=== PATIENT | female | born 1960 | race Caucasian/White ===

== ENCOUNTER → 2016-12-06 | Outpatient (REF) | payer BC ==
[2016-12-06 14:30] LABS: IMMUNOGLOBULIN M 40.2 MG/DL (40-230)
== END ==
LOC: M LAB REF 13:11
PROVIDERS: ATTEND Internal Medicine Pulmonary Disease
DX: R05 Cough (principal)

== ENCOUNTER → 2017-02-28 | Outpatient (CLI) | payer BC ==
[~2017-02-28] MED LIST: METHACHOLINE KIT (J7674) INH ONE
--- NOTE | 2017-02-28 08:48 | PFTRPT ---
METHACHOLINE CHALLENGE REPORT: ORDERING PROVIDER: Braden Hugo D.O. DATE OF SERVICE: 02/28/17 INTERPRETATION: The study was of excellent technical quality. Under protocol, methacholine was administered. Even after a maximal dose of 25 mg (188.875 CDUs) of methacholine , no provocation dose was ever achieved. IMPRESSION: Negative methacholine challenge study. MTDD
== END ==
LOC: M CARPUL 08:03
PROVIDERS: ATTEND Internal Medicine Pulmonary Disease
DX: R05 Cough (principal)

== ENCOUNTER → 2018-09-20 | Outpatient (CLI) | payer BC | LOC: M WUC 08:40 | DX: S20.212A Contusion of left front wall of thorax, initial encounter (principal); X58.XXXA Exposure to other specified factors, initial encounter; Y92.9 Unspecified place or not applicable | CPT/HCPCS: 71101 ==

== ENCOUNTER → 2019-02-17 | Outpatient (REF) | payer BC | LOC: M LAB REF 10:32 | PROVIDERS: ATTEND Physician Assistant | DX: J02.9 Acute pharyngitis, unspecified (principal) ==

== ENCOUNTER → 2020-04-05 | Outpatient (CLI) | payer BC ==
--- NOTE | 2020-04-06 02:02 | REP ---
Clinical: Nontraumatic right foot pain Technique: AP, lateral, bilateral oblique views right foot . Findings: The osseous structures and joint spaces are intact and normal. There is no evidence for acute fracture or dislocation. Surrounding soft tissues are unremarkable. No subcutaneous emphysema or radiodense foreign body. Impression: Normal age appropriate right foot radiographs . No acute fracture or dislocation. Electronically Signed by Rosendo Romero MD 04/06/2020 01:54 A
== END ==
LOC: M WUC 09:56
PROVIDERS: ATTEND Physician Assistant
DX: M79.671 Pain in right foot (principal)

== ENCOUNTER → 2020-05-30 | Outpatient (CLI) | payer BC ==
[~2020-05-30] MED LIST changes: +FLUO40CA PO; -METHACHOLINE KIT (J7674) INH ONE; +NORC1TAB7 PO; +PANT40TA29 PO; +TOPI50TA9 PO
== END ==
LOC: M LABSMTC 10:12
PROVIDERS: ATTEND Anesthesiology
DX: Z01.818 Encounter for other preprocedural examination (principal); Z11.59 Encounter for screening for other viral diseases; Z20.828 Contact with and (suspected) exposure to other viral communicable diseases
CPT/HCPCS: C9803; U0003

== ENCOUNTER 2020-06-04 08:04 | Day surgery (SDC) | payer BC ==
[~2020-06-04] VITALS: Ht 154.9 cm; Wt 65.3 kg
[~2020-06-04 08:04] MED LIST changes: +LR 1,000 ML IV ONE; -NORC1TAB7 PO
[2020-06-04] MEDS ORDERED: fentaNYL 100 MCG/2 ML INJECTION (J3010) As Ordered ONE (08:36)
[2020-06-04] MEDS ORDERED: LIDOCAINE 2% 100MG/5ML SDV (FOR ANES.) As Ordered ONE (08:36)
[2020-06-04] MEDS ORDERED: MIDAZOLAM INJ 2MG/2ML VIAL (J2250 PER 1MG) As Ordered ONE (08:36)
[2020-06-04] MEDS ORDERED: propofoL 200 MG/20 ML VIAL As Ordered ONE ×2 (08:36→09:44)
[2020-06-04] MEDS ORDERED: BUPIVACAINE HCL 0.25% 30ML VIAL As Ordered ONE (09:10)
[2020-06-04] MEDS ORDERED: BUPIVACAINE HCL 0.5% 30 ML VIAL As Ordered ONE (09:10)
[2020-06-04] MEDS ORDERED: BUPIVACAINE LIPOSOME/PF 1.3% 20ML VIAL (13.3MG/ML)(EXPAREL)(C9290 PER1MG) As Ordered ONE (10:17)
[2020-06-04] MEDS ORDERED: LR 1,000 ML IV SCH (11:45)
[2020-06-04] MEDS ORDERED: ONDANSETRON 4MG/2ML VIAL IV PRN (11:45)
[2020-06-04] MEDS ORDERED: fentaNYL 100 MCG/2 ML INJECTION (J3010) IV PRN (11:45)
[2020-06-04] MEDS ORDERED: ACETAMINOPHEN TAB 650MG DOSE (2X325MG) PO PRN (12:00)
[2020-06-04] MEDS ORDERED: IBUPROFEN 600MG TAB PO PRN (12:00)
[2020-06-04] MEDS ORDERED: NORC1TAB7 PO (13:05)
[2020-06-04 15:00] VITALS: BP 128/63
--- NOTE | 2020-08-24 14:39 | RO ---
DATE OF OPERATION: 06/04/2020 PREOPERATIVE DIAGNOSIS: Grade IV hemorrhoids. POSTOPERATIVE DIAGNOSIS: Grade IV hemorrhoids. PROCEDURE PERFORMED: Hemorrhoidectomy. SURGEON: Karlos Roman MD ANESTHESIA: Spinal. INDICATIONS FOR THE PROCEDURE: The patient is a 59-year-old woman who has a long history of hemorrhoids. These have recently become more uncomfortable with presence of some leakage of small amounts of stool and mucous. She is now for hemorrhoidectomy. OPERATIVE PROCEDURE: The patient was brought to the operating room. A spinal anesthetic was placed and she was then rolled into a prone position and positioned in a prone jackknife position on the operating table. The buttocks were spread slightly with tape. The perineum was prepped and draped in sterile fashion. A Christian anal speculum was used to inspect the anus and rectum. She was found to have moderately large hemorrhoidal clusters in right anterior and right posterior position as well as left lateral position. Initially the right posterior hemorrhoidal bundle which appeared to be the largest was addressed. The area was exposed with the speculum. An apical suture of 3-0 Vicryl was placed above the proximal end of the hemorrhoid. Using the needle-tip cautery the hemorrhoids were incised circumferentially extending out to the level of the dentate line. The hemorrhoids were elevated off the underlying internal sphincter muscle again with hemostasis ensured using the cautery. The tissue was set aside as specimen. Some additional vascular tissue was excised from beneath the edges of the mucosa. Some of the external component was also excised with the overlying anoderm. Once the hemorrhoidal tissues had been excised as thoroughly as possible and hemostasis was ensured the internal portion of the wound was closed with running locking suture of 3-0 Vicryl. This was carried out to the dentate line and the wound from this point further to the anoderm was closed with chromic sutures. The right anterior hemorrhoidal cluster was then addressed in similar fashion and closed similarly with 3-0 Vicryl and 3-0 chromic. The left lateral hemorrhoid was then also excised. All of the hemorrhoidal tissues were sent together as a single specimen. Final inspection showed excellent hemostasis. 20 mL of Exparel was mixed with 10 mL of 0.25% Marcaine. This was then infiltrated widely into the tissues around the anus and along the suture lines. The anus was covered with Adaptic and light pressure dressing of fluffed gauze. This was held in place with tape. The patient was rolled into supine position on the stretcher and transported to the recovery room in stable condition. ARJUN
== END 2020-06-04 15:07 | disposition home or self-care (01) ==
LOC: M SDC 08:04
PROVIDERS: ATTEND Surgery
DX: K64.3 Fourth degree hemorrhoids (principal); K21.9 Gastro-esophageal reflux disease without esophagitis; K44.9 Diaphragmatic hernia without obstruction or gangrene; F32.9 Major depressive disorder, single episode, unspecified; Z79.899 Other long term (current) drug therapy; Z88.5 Allergy status to narcotic agent
CPT/HCPCS: 46255; 88304; C9290; J2250; J3010

== ENCOUNTER 2020-08-09 16:25 | Emergency (ER) | payer BC ==
[~2020-08-09] VITALS: Ht 154.9 cm; Wt 140.0 kg
[~2020-08-09 16:25] MED LIST changes: -LR 1,000 ML IV ONE; +NORC1TAB7 PO
--- NOTE | 2020-08-09 17:23 | REPVR ---
PROCEDURE INFORMATION: Exam: CT Head Without Contrast Exam date and time: 08/09/2020 4:52 PM Age: 59 years old Clinical indication: Syncope and collapse TECHNIQUE: Imaging protocol: Computed tomography of the head without contrast. Radiation optimization: All CT scans at this facility use at least one of these dose optimization techniques: automated exposure control; mA and/or kV adjustment per patient size (includes targeted exams where dose is matched to clinical indication); or iterative reconstruction. COMPARISON: No relevant prior studies available. FINDINGS: Brain: No hemorrhage. Unremarkable white matter for the patient's age. No mass effect. No evolving territorial infarct. Ventricles: No ventriculomegaly. Bones/joints: No acute calvarial fracture seen. Paranasal sinuses: Trace polypoid mucosal thickening in the visualized left maxillary sinus. Mastoid air cells: Visualized mastoid air cells are well aerated. Soft tissues: Unremarkable. IMPRESSION: No acute intracranial abnormality seen. Electronically signed by: Lyudmila Rodriguez On 08/09/2020 17:23:09 PM
--- NOTE | 2020-08-09 17:29 | REPVR ---
PROCEDURE INFORMATION: Exam: CT Cervical Spine Without Contrast Exam date and time: 08/09/2020 4:52 PM Age: 59 years old Clinical indication: Injury or trauma; Injury history: Syncope; Initial encounter; Blunt trauma TECHNIQUE: Imaging protocol: Computed tomography images of the cervical spine without contrast. Radiation optimization: All CT scans at this facility use at least one of these dose optimization techniques: automated exposure control; mA and/or kV adjustment per patient size (includes targeted exams where dose is matched to clinical indication); or iterative reconstruction. COMPARISON: No relevant prior studies available. FINDINGS: Vertebrae: Straightening of the cervical lordosis may be positional or due to muscle spasm. Trace degenerative retrolisthesis of C5 on C6. No acute fracture seen. [id number] disc height loss and spondylosis with uncovertebral arthropathy at C5-C6. Moderate degenerative changes at C1-C2. Discs/Spinal canal/Neural foramina: See "Vertebrae" finding. Soft tissues: Unremarkable. Lungs: Lung apices are normal. IMPRESSION: No cervical spine fracture seen. Electronically signed by: Lyudmila Rodriguez On 08/09/2020 17:28:54 PM
[2020-08-09] MEDS ORDERED: ACETAMINOPHEN TAB 650MG DOSE (2X325MG) PO ONE (17:30)
[2020-08-09 17:54] LABS: BASO % 0.5 % (0.0-1.0); EOS # 0.2 10^3/uL (0.0-0.5); EOS % 2.1 % (0.0-3.0); HEMATOCRIT 32.9 % (36.0-47.0); HEMOGLOBIN 10.5 g/dl (12.0-15.5); LYMPH # 1.5 10^3/uL (1.5-5.0); LYMPH % 16.4 % (24.0-44.0); MEAN CORPUSCULAR HEMOGLOBIN 26.5 pg (27.0-33.0); MEAN CORPUSCULAR HGB CONC 31.9 g/dl (32.0-36.5); MEAN CORPUSCULAR VOLUME 83.1 fl (80.0-96.0); MONO # 0.7 10^3/uL (0.0-0.8); NEUTROPHILS # 6.4 10^3/uL (1.5-8.5); NEUTROPHILS % 72.4 % (36.0-66.0); PLATELET COUNT, AUTOMATED 332 10^3/uL (150-450); RED BLOOD COUNT 3.96 10^6/uL (4.00-5.40); WHITE BLOOD COUNT 8.9 10^3/uL (4.0-10.0)
[2020-08-09 17:57] LABS: INR 0.93; PROTHROMBIN TIME 12.6 SECONDS (12.5-14.3)
[2020-08-09 18:14] LABS: BLOOD UREA NITROGEN 19 MG/DL (7-18); CALCIUM LEVEL 9.3 MG/DL (8.5-10.1); CARBON DIOXIDE LEVEL 25 MEQ/L (21-32); CHLORIDE LEVEL 109 MEQ/L (98-107); CK-MB VALUE MASS < 1.0 NG/ML (<3.6); CPK CREATINE PHOSPHOKINASE 55 U/L (26-192); CREATININE FOR GFR 0.96 MG/DL (0.55-1.30); FREE T4 0.92 NG/DL (0.76-1.46); GLOMERULAR FILTRATION RATE > 60.0 (>51); GLUCOSE, FASTING 115 MG/DL (70-100); MAGNESIUM LEVEL 2.4 MG/DL (1.8-2.4); MB/CK RELATIVE INDEX 1.82 (< OR =4); POTASSIUM SERUM 4.1 MEQ/L (3.5-5.1); SODIUM LEVEL 139 MEQ/L (136-145); TROPONIN I < 0.02 NG/ML (< 0.10)
--- NOTE | 2020-08-09 18:28 | REPVR ---
PROCEDURE INFORMATION: Exam: XR Chest, 2 Views Exam date and time: 08/09/2020 4:52 PM Age: 59 years old Clinical indication: Other: Syncope TECHNIQUE: Imaging protocol: XR of the chest Views: 2 views. COMPARISON: CR RIBS UNLATERAL WITH PA CHEST 09/20/2018 8:49 AM FINDINGS: Lungs: Low lung volumes. No consolidation seen. An area of platelike atelectasis versus scarring in the left lung base. Pleural space: Unremarkable. No pleural effusion. No pneumothorax. Heart/Mediastinum: Unremarkable. No cardiomegaly. Bones/joints: No acute fracture seen. Organs: Cholecystectomy clips in the right upper quadrant. IMPRESSION: No evidence of acute cardiopulmonary disease. Electronically signed by: Lyudmila Rodriguez On 08/09/2020 18:28:46 PM
--- NOTE | 2020-08-09 20:35 | ECGEPIP ---
[facility] - ED Test Date: 2020-08-09 Pat Name: MINA MARKS Department: Room: - Gender: Female School Office Assistant: RENETTA : 1960 Requested By: ROSIE Celis Order Number: [id number] Reading MD: Tracy Palomares Measurements Intervals [place] Rate: 69 P: 33 [place]: 177 QRS: 1 QRSD: 81 T: 35 QT: 423 QTc: 455 Interpretive Statements SINUS RHYTHM MINIMAL VOLTAGE CRITERIA FOR LVH, CONSIDER NORMAL VARIANT SIMILAR 04/14/15 Electronically Signed on 08-09-2020 20:35:10 EDT by Tracy Palomares
[2020-08-09 20:45] VITALS: BP 119/58
== END 2020-08-09 21:02 | disposition home or self-care (01) ==
LOC: M ED 16:25
DX: R55 Syncope and collapse (principal); K21.9 Gastro-esophageal reflux disease without esophagitis; F33.9 Major depressive disorder, recurrent, unspecified; Z79.899 Other long term (current) drug therapy; Z88.5 Allergy status to narcotic agent

== ENCOUNTER → 2020-08-12 | Outpatient (REF) | payer BC ==
[2020-08-12 18:09] LABS: PERCENT SATURATION 20.3 % (13.2-45.0)
== END ==
LOC: M LAB REF 17:00
PROVIDERS: ATTEND Registered Nurse
DX: R55 Syncope and collapse (principal); D64.9 Anemia, unspecified

== ENCOUNTER → 2020-12-23 | Outpatient (CLI) | payer BC ==
--- NOTE | 2020-12-23 11:38 | REP ---
INDICATION: CHEST PAIN, UNSPECIFIED. COMPARISON: Comparison chest x-ray August 09, 2020. TECHNIQUE: Two views.. FINDINGS: There is mild linear fibrosis at the left base. There are linear densities in the right perihilar and right base region consistent with platelike atelectasis. Lung fraser are otherwise clear. Heart is not enlarged. There are mild degenerative changes in the thoracic spine. There are clips in right upper quadrant of the abdomen. Pulmonary vasculature is not increased. IMPRESSION: Right perihilar and right base platelike atelectasis. Linear fibrosis left base. Otherwise no acute disease.. <Electronically signed by Ray Morales > 12/23/20 [id number]
[2020-12-23 11:43] LABS: BASO % 0.5 % (0.0-1.0); EOS # 0.2 10^3/uL (0.0-0.5); EOS % 3.2 % (0.0-3.0); LYMPH # 1.6 10^3/uL (1.5-5.0); LYMPH % 26.8 % (24.0-44.0); MEAN CORPUSCULAR HEMOGLOBIN 28.1 pg (27.0-33.0); MEAN CORPUSCULAR HGB CONC 32.5 g/dl (32.0-36.5); MEAN CORPUSCULAR VOLUME 86.4 fl (80.0-96.0); MONO # 0.5 10^3/uL (0.0-0.8); MONO % 8.7 % (0.0-5.0); NEUTROPHILS # 3.6 10^3/uL (1.5-8.5); PLATELET COUNT, AUTOMATED 358 10^3/uL (150-450); RED BLOOD COUNT 4.63 10^6/uL (4.00-5.40)
[2020-12-23 12:39] LABS: ALBUMIN 3.6 GM/DL (3.2-5.2); ALT/SGPT 27 U/L (12-78); BILIRUBIN,TOTAL 0.5 MG/DL (0.2-1.0); BLOOD UREA NITROGEN 12 MG/DL (7-18); CALCIUM LEVEL 9.7 MG/DL (8.5-10.1); CARBON DIOXIDE LEVEL 24 MEQ/L (21-32); CHLORIDE LEVEL 108 MEQ/L (98-107); CK-MB VALUE MASS < 1.0 NG/ML (<3.6); CPK CREATINE PHOSPHOKINASE 30 U/L (26-192); CREATININE FOR GFR 0.92 MG/DL (0.55-1.30); GLOMERULAR FILTRATION RATE > 60.0 (>51); GLUCOSE, FASTING 86 MG/DL (70-100); MB/CK RELATIVE INDEX 3.33 (< OR =4); MYOGLOBIN 33 NG/ML (13-71); POTASSIUM SERUM 4.6 MEQ/L (3.5-5.1); SODIUM LEVEL 141 MEQ/L (136-145); TOTAL PROTEIN 7.6 GM/DL (6.4-8.2); TROPONIN I < 0.02 NG/ML (< 0.10)
== END ==
LOC: M LAB 11:06
PROVIDERS: ATTEND Physician Assistant
DX: R07.9 Chest pain, unspecified (principal); J98.11 Atelectasis

== ENCOUNTER → 2021-01-26 | Outpatient (CLI) | payer BC ==
[~2021-01-26] MED LIST changes: +ISOVUE-370 76% 100ML VIAL As Ordered ONE
--- NOTE | 2021-01-26 16:49 | REP ---
INDICATION: CHEST PAIN, DYSPNEA. COMPARISON: 06/21/2017. TECHNIQUE: CT angiogram chest performed following the intravenous administration of 100 cc of Isovue 370. Sagittal and coronal reconstruction images are performed. FINDINGS: Lungs: There are bibasilar fibro atelectatic changes. No infiltrate or suspicious nodule is seen. Mediastinum: No adenopathy. Pulmonary arteries: No evidence of pulmonary embolism. Ayala: No adenopathy. Axilla: No adenopathy. Pleura: No effusion. Heart: Slightly enlarged. Thoracic aorta: No aneurysm or dissection. Upper abdominal structures: There is a small hiatal hernia. There has been a prior cholecystectomy. Visualized osseous structures: Unremarkable. IMPRESSION: No CT evidence of pulmonary embolism. No infiltrate seen. Bibasilar fibro atelectatic changes. <Electronically signed by Bo Alvarado > 01/26/21 [id number]
== END ==
LOC: M RAD 15:49
PROVIDERS: ATTEND Physician Assistant
DX: R07.9 Chest pain, unspecified (principal); R06.00 Dyspnea, unspecified
CPT/HCPCS: 71275; Q9967

== ENCOUNTER → 2021-05-02 | Outpatient (CLI) | payer BC ==
[~2021-05-02] MED LIST changes: -ISOVUE-370 76% 100ML VIAL As Ordered ONE
--- NOTE | 2021-05-03 09:06 | REP ---
INDICATION: OTHER NONSPECIFIC ADNORMAL FINDING OF LUNG FIELD COMPARISON: 01/26/2021 TECHNIQUE: Axial noncontrast images from the thoracic inlet to the upper abdomen with coronal and sagittal reformations. This CT examination was performed using the following dose reduction techniques: Automated exposure control, adjustment of mA and/or kv according to the patient's size, and use of iterative reconstruction technique. FINDINGS: Bilateral lung fraser are well aerated and essentially clear. There is a small focus of chronic fibroatelectatic change at the lingula. No acute consolidation, obvious nodule or mass. No effusion. No pneumothorax. Tracheobronchial tree is patent. No obvious adenopathy. The mediastinum demonstrates relatively normal thoracic aorta, pulmonary vasculature, and heart/pericardium. Small hiatal hernia noted. Musculoskeletal structures are intact. Limited upper abdomen demonstrates normal bilateral adrenal glands and prior cholecystectomy. IMPRESSION: Small focus of chronic fibroatelectatic change at the lingula. No acute mediastinal or pleuroparenchymal process. <Electronically signed by Rosendo Romero > 05/03/21 0902
== END ==
LOC: M RAD 09:56
PROVIDERS: ATTEND Physician Assistant
DX: R91.8 Other nonspecific abnormal finding of lung field (principal); K44.9 Diaphragmatic hernia without obstruction or gangrene; Z90.49 Acquired absence of other specified parts of digestive tract

== ENCOUNTER → 2021-07-21 | Outpatient (CLI) | payer BC ==
--- NOTE | 2021-07-21 10:01 | REPMRS ---
Patient History The patient states she has not had a clinical breast exam in over a year. Family history of breast cancer at age 80 in mother, unknown cancer at age 47 in brother, unknown cancer at age 59 in father. Took hormonal contraceptives for 5 years. Took estrogen for 15 years. Patient states no breast complaints today. Patient has signed MRS History Sheet. Digital Woman Screen Mammo: July 21, 2021 - Exam #: [id number] Bilateral CC and MLO view(s) were taken. Technologist: Natalie Matuteologist Prior study comparison: October 01, 2019, bilateral digital mammo screening bilat, performed at [facility]. September 18, 2017, bilateral digital mammo screening bilat, performed at [facility]. September 16, 2015, bilateral digital mammo screening bilat, performed at [facility]. FINDINGS: There are scattered fibroglandular densities. The Volpara volumetric breast density category is:B. There has been no change in the appearance of the mammogram from the prior studies. There is a mild amount of scattered fibroglandular density which is fairly symmetric. There is no interval development of dominant mass, architectural distortion, or grouped microcalcification suggestive of malignancy. 3-D tomosynthesis shows no additional findings. Assessment: BI-RADS/ACR category 1 mammogram. Negative Mammogram. Recommendation Routine screening mammogram of both breasts in 1 year (for women over age 40). This patient's [facility] Lifetime Breast Cancer Risk is estimated at 11.1 %. This mammogram was interpreted with the aid of an FDA-approved computer-aided dectection system. Electronically Signed By: Ray Morales MD 07/21/21 1000
== END ==
LOC: M WHC 09:25
PROVIDERS: ATTEND Physician Assistant Medical
DX: Z12.31 Encounter for screening mammogram for malignant neoplasm of breast (principal); Z80.3 Family history of malignant neoplasm of breast

== ENCOUNTER → 2021-10-28 | Outpatient (CLI) | payer BC ==
--- NOTE | 2021-10-28 09:01 | REP ---
INDICATION: ABN FINDING OF LUNG COMPARISON: 05/02/2021 TECHNIQUE: Axial noncontrast images from the thoracic inlet to the upper abdomen with coronal and sagittal reformations. This CT examination was performed using the following dose reduction techniques: Automated exposure control, adjustment of mA and/or kv according to the patient's size, and use of iterative reconstruction technique. FINDINGS: Bilateral lung fraser are relatively well aerated and symmetric. Chronic focus of chronic fibroatelectatic change at the lingula again noted. Extremely subtle foci of ground-glass opacity/early airspace disease suggested in the left lower lobe. No further acute consolidation, suspicious nodule or mass. No effusion. No pneumothorax. Tracheobronchial tree is patent. No obvious adenopathy. Thoracic aorta, pulmonary vasculature, and heart/pericardium are relatively normal/stable. Surrounding musculoskeletal structures are intact and without acute osseous abnormality. Limited upper abdomen demonstrates normal bilateral adrenal glands and evidence for prior cholecystectomy. IMPRESSION: Very minimal possible early airspace disease versus subtle dependent change at the left base. No further acute mediastinal or pleuroparenchymal process appreciated. <Electronically signed by Rosendo Romero > 10/28/21 [id number]
== END ==
LOC: M RAD 08:36
PROVIDERS: ATTEND Physician Assistant
DX: R91.8 Other nonspecific abnormal finding of lung field (principal)

== ENCOUNTER → 2021-11-08 | Outpatient (CLI) | payer BC ==
[~2021-11-08] MED LIST changes: +METHACHOLINE KIT (J7674) INH ONE
--- NOTE | 2021-11-08 09:50 | PFTRPT ---
Height: 61.00 Inches Weight: 142.00 Lbs BSA: 1.63 Diagnosis: R05.9 DATE: 11/08/2021 ORDERED BY: ANA Denise QUALITY: Study of excellent technical quality. PROCEDURE: Under protocol, methacholine was administered. Even after a maximal dose of 25 mg or 188.875 CDUs no provocation was ever achieved. IMPRESSION: Negative methacholine challenge study. MTDD
== END ==
LOC: M CARPUL 08:58
PROVIDERS: ATTEND Physician Assistant
DX: R05.9 Cough, unspecified (principal)
CPT/HCPCS: 94070; J7674

== ENCOUNTER → 2022-04-24 | Outpatient (CLI) | payer BC ==
[~2022-04-24] MED LIST changes: -METHACHOLINE KIT (J7674) INH ONE
== END ==
LOC: M RAD 11:25
PROVIDERS: ATTEND Physician Assistant
DX: R91.8 Other nonspecific abnormal finding of lung field (principal)

== ENCOUNTER → 2022-06-22 | Outpatient (CLI) | payer BC ==
[2022-06-22 20:32] LABS: FOLLICLE STIMULATING HORMONE 65.6 mIU/mL; LUTEINIZING HORMONE 47.1 mIU/mL
== END ==
LOC: M WUC 10:42
PROVIDERS: ATTEND Registered Nurse
DX: N95.1 Menopausal and female climacteric states (principal); R93.7 Abnormal findings on diagnostic imaging of other parts of musculoskeletal system; M50.321 Other cervical disc degeneration at C4-C5 level; M50.322 Other cervical disc degeneration at C5-C6 level; M43.12 Spondylolisthesis, cervical region

== ENCOUNTER → 2022-08-28 | Outpatient (CLI) | payer BC | LOC: M WHC 08:14 | PROVIDERS: ATTEND Registered Nurse | DX: Z12.31 Encounter for screening mammogram for malignant neoplasm of breast (principal); M81.0 Age-related osteoporosis without current pathological fracture; M85.89 Other specified disorders of bone density and structure, multiple sites ==

== ENCOUNTER → 2022-11-06 | Outpatient (CLI) | payer BC | LOC: M RAD 07:35 | PROVIDERS: ATTEND Registered Nurse | DX: N28.1 Cyst of kidney, acquired (principal); I10 Essential (primary) hypertension ==

== ENCOUNTER → 2023-02-19 | Outpatient (CLI) | payer BC ==
[~2023-02-19] MED LIST changes: +TOPI-254 PO; -TOPI50TA9 PO
== END ==
LOC: M WUC 11:49
PROVIDERS: ATTEND Physician Assistant Medical
DX: M79.672 Pain in left foot (principal)

== ENCOUNTER 2023-11-10 02:16 | Inpatient (IN) | payer BC ==
[~2023-11-10] VITALS: Ht 152.4 cm; Wt 68.9 kg
[~2023-11-10 02:16] MED LIST changes: +TOPI-21 PO; -TOPI-254 PO
[2023-11-10] MEDS ORDERED: NS 1,000 ML IV ONE (02:40)
[2023-11-10 02:55] LABS: BASO % 0.3 % (0.0-1.0); EOS # 0.1 10^3/uL (0.0-0.5); EOS % 0.4 % (0.0-3.0); HEMOGLOBIN 14.5 g/dl (12.0-15.5); LYMPH # 1.5 10^3/uL (1.5-5.0); LYMPH % 13.3 % (24.0-44.0); MEAN CORPUSCULAR HEMOGLOBIN 31.4 pg (27.0-33.0); MEAN CORPUSCULAR HGB CONC 35.4 g/dl (32.0-36.5); MEAN CORPUSCULAR VOLUME 88.7 fl (80.0-96.0); MONO # 0.6 10^3/uL (0.0-0.8); MONO % 5.3 % (2.0-8.0); NEUTROPHILS # 9.3 10^3/uL (1.5-8.5); NEUTROPHILS % 80.3 % (36.0-66.0); PLATELET COUNT, AUTOMATED 347 10^3/uL (150-450); RED BLOOD COUNT 4.62 10^6/uL (4.00-5.40); WHITE BLOOD COUNT 11.6 10^3/uL (4.0-10.0)
[2023-11-10 03:14] LABS: LIPASE 50 U/L (12-53)
[2023-11-10 03:15] LABS: ETHYL ALCOHOL (ETHANOL) 0.094 % (0.000-0.010)
[2023-11-10] MEDS ORDERED: NS IV ONE (03:15)
[2023-11-10 03:16] LABS: ALBUMIN 3.7 G/DL (3.2-5.2); ALKALINE PHOSPHATASE 71 U/L (46-116); ALT/SGPT 42 U/L (7.0-40); AST/SGOT 50 U/L (<34); BILIRUBIN,DIRECT 0.1 MG/DL (<0.4); BILIRUBIN,TOTAL 0.4 MG/DL (0.3-1.2); BLOOD UREA NITROGEN 13 MG/DL (9-23); CALCIUM LEVEL 9.6 MG/DL (8.3-10.6); CARBON DIOXIDE LEVEL 20 MMOL/L (20-31); CHLORIDE LEVEL 91 MMOL/L (98-107); CK-MB VALUE MASS < 1.0 NG/ML (<3.6); CREATININE FOR GFR 0.91 MG/DL (0.55-1.30); GLOMERULAR FILTRATION RATE > 60.0 (>45); GLUCOSE, FASTING 149 MG/DL (74-106); SODIUM LEVEL 125 MMOL/L (136-145); TOTAL PROTEIN 6.9 G/DL (5.7-8.2)
[2023-11-10 03:20] LABS: CPK CREATINE PHOSPHOKINASE 46 U/L (34-145); MB/CK RELATIVE INDEX 2.17 (< OR =4)
[2023-11-10] MEDS ORDERED: MORPHINE 4 MG/ML 1ML VIAL IV PRN (05:00)
[2023-11-10] MEDS ORDERED: ONDANSETRON 4MG 2ML VIAL IV ONE (05:00)
[2023-11-10] MEDS ORDERED: ISOVUE-370 76% 100ML VIAL As Ordered ONE (05:13)
[2023-11-10] MEDS ORDERED: PIPERACILLIN/TAZOBACTAM SOD 4.5 GM in D5W MINI-BAG PLUS 50 ML IV ONE (06:00)
[2023-11-10] MEDS ORDERED: LORazepam 2 MG TAB PO PRN (07:50)
[2023-11-10] MEDS ORDERED: ONDANSETRON 4MG 2ML VIAL IV PRN (07:50)
[2023-11-10 08:26] LABS: INR 1.05; PROTHROMBIN TIME 13.4 SECONDS (12.5-14.5)
[2023-11-10 08:27] LABS: PARTIAL THROMBOPLASTIN TIME 24.5 SECONDS (24.8-34.2)
[2023-11-10] MEDS: LR 1,000 ML IV SCH ×2 (08:44→22:32)
[2023-11-10] MEDS ORDERED: MED REC IN PROGRESS XX SCH (08:45)
[2023-11-10] MEDS ORDERED: LISI40TA4 PO (08:52)
[2023-11-10] MEDS ORDERED: HYDR-3490 PO (08:52)
[2023-11-10] MEDS ORDERED: ESTR3TA PO (08:52)
[2023-11-10] MEDS ORDERED: HOME MED LIST COMPLETE! XX SCH (08:55)
[2023-11-10] MEDS ORDERED: MULTIVITAMIN -ADULT INJECTION 10 ML, THIAMINE INJection 100 MG, FOLIC ACID 1 MG in NS 1... IV ONE (09:00)
[2023-11-10 09:16] LABS: PROCALCITONIN <0.04 ng/ml
[2023-11-10] MEDS: PIPERACILLIN/TAZOBACTAM SOD 3.375 GM in D5W MINI-BAG PLUS 50 ML IV SCH ×2 (12:26→19:02)
[2023-11-10 13:37] VITALS: BP 130/60; TEMP 96.8; O2SAT 95
[2023-11-10] MEDS ORDERED: GLUCOSE 4GM CHEW TABLET PO PRN (14:15)
[2023-11-10] MEDS ORDERED: GLUCAGON INJ 1MG VIAL SC PRN (14:15)
[2023-11-10] MEDS ORDERED: DEXTROSE 50% 50ML SYRINGE IV PRN (14:15)
[2023-11-10] MEDS: HEPARIN SOD (PORCINE) 5000UNITS/ML 1ML VIAL/SYRINGE SQ SCH ×2 (14:53→22:32)
[2023-11-10 15:54] VITALS: BP 127/71; TEMP 97.6; O2SAT 97
[2023-11-10 17:00] VITALS: BP_SYST 130; BP_SYST 142; BP_DIAS 66; BP_DIAS 67; BP_DIAS 78
[2023-11-10 20:50] VITALS: BP 146/70; TEMP 98; O2SAT 96
[2023-11-11] MEDS: LR 1,000 ML IV SCH ×3 (00:28→15:50)
[2023-11-11] MEDS: PIPERACILLIN/TAZOBACTAM SOD 3.375 GM in D5W MINI-BAG PLUS 50 ML IV SCH ×5 (00:28→23:42)
[2023-11-11] MEDS: KETOROLAC 30 MG/ML 1ML VIAL IV PRN ×2 (00:45→22:34)
[2023-11-11 00:55] VITALS: BP 158/74; TEMP 97.1; O2SAT 94
[2023-11-11 01:00] VITALS: BP_SYST 152; BP_SYST 157; BP_SYST 158; BP_DIAS 83; BP_DIAS 84; BP_DIAS 87
[2023-11-11 04:00] VITALS: BP 135/65; TEMP 97; O2SAT 94
[2023-11-11 06:35] LABS: BASO % 0.3 % (0.0-1.0); EOS # 0.2 10^3/uL (0.0-0.5); EOS % 2.9 % (0.0-3.0); HEMATOCRIT 33.9 % (36.0-47.0); LYMPH # 1.5 10^3/uL (1.5-5.0); LYMPH % 23.5 % (24.0-44.0); MEAN CORPUSCULAR HEMOGLOBIN 31.3 pg (27.0-33.0); MEAN CORPUSCULAR HGB CONC 34.2 g/dl (32.0-36.5); MEAN CORPUSCULAR VOLUME 91.4 fl (80.0-96.0); MONO # 0.5 10^3/uL (0.0-0.8); MONO % 8.1 % (2.0-8.0); NEUTROPHILS # 4.1 10^3/uL (1.5-8.5); NEUTROPHILS % 64.9 % (36.0-66.0); PLATELET COUNT, AUTOMATED 267 10^3/uL (150-450); RED BLOOD COUNT 3.71 10^6/uL (4.00-5.40); WHITE BLOOD COUNT 6.3 10^3/uL (4.0-10.0)
[2023-11-11 06:38] LABS: HEMOGLOBIN 11.6 g/dl (12.0-15.5)
[2023-11-11] MEDS: HEPARIN SOD (PORCINE) 5000UNITS/ML 1ML VIAL/SYRINGE SQ SCH ×3 (06:38→21:33)
[2023-11-11 06:44] LABS: MAGNESIUM LEVEL 2.2 MG/DL (1.8-2.4); PHOSPHORUS LEVEL 2.5 MG/DL (2.4-5.1)
[2023-11-11 07:59] LABS: BLOOD UREA NITROGEN 8 MG/DL (9-23); CALCIUM LEVEL 8.5 MG/DL (8.3-10.6); CARBON DIOXIDE LEVEL 27 MMOL/L (20-31); CHLORIDE LEVEL 105 MMOL/L (98-107); GLOMERULAR FILTRATION RATE > 60.0 (>45); GLUCOSE, FASTING 82 MG/DL (74-106); POTASSIUM SERUM 3.7 MMOL/L (3.5-5.1); SODIUM LEVEL 140 MMOL/L (136-145)
[2023-11-11 08:00] VITALS: BP 146/66; TEMP 97.2; O2SAT 94
[2023-11-11 21:00] VITALS: BP 168/96; TEMP 96.3; O2SAT 94
[2023-11-11] MEDS: FLUoxetine 20MG CAP PO SCH (21:34)
[2023-11-11 22:45] VITALS: BP 156/74
[2023-11-12 04:00] VITALS: TEMP 96.7; O2SAT 94
[2023-11-12 05:33] LABS: BASO % 0.5 % (0.0-1.0); EOS # 0.4 10^3/uL (0.0-0.5); HEMATOCRIT 33.1 % (36.0-47.0); HEMOGLOBIN 11.2 g/dl (12.0-15.5); LYMPH # 1.7 10^3/uL (1.5-5.0); LYMPH % 26.2 % (24.0-44.0); MEAN CORPUSCULAR HEMOGLOBIN 31.1 pg (27.0-33.0); MEAN CORPUSCULAR HGB CONC 33.8 g/dl (32.0-36.5); MEAN CORPUSCULAR VOLUME 91.9 fl (80.0-96.0); MONO # 0.6 10^3/uL (0.0-0.8); MONO % 8.7 % (2.0-8.0); NEUTROPHILS # 3.8 10^3/uL (1.5-8.5); NEUTROPHILS % 58.3 % (36.0-66.0); PLATELET COUNT, AUTOMATED 270 10^3/uL (150-450); WHITE BLOOD COUNT 6.5 10^3/uL (4.0-10.0)
[2023-11-12 05:59] LABS: BLOOD UREA NITROGEN 6 MG/DL (9-23); CALCIUM LEVEL 8.8 MG/DL (8.3-10.6); CARBON DIOXIDE LEVEL 28 MMOL/L (20-31); CHLORIDE LEVEL 104 MMOL/L (98-107); CREATININE FOR GFR 0.74 MG/DL (0.55-1.30); GLOMERULAR FILTRATION RATE > 60.0 (>45); GLUCOSE, FASTING 96 MG/DL (74-106); MAGNESIUM LEVEL 2.2 MG/DL (1.8-2.4); POTASSIUM SERUM 3.5 MMOL/L (3.5-5.1); SODIUM LEVEL 138 MMOL/L (136-145)
[2023-11-12] MEDS: PIPERACILLIN/TAZOBACTAM SOD 3.375 GM in D5W MINI-BAG PLUS 50 ML IV SCH ×3 (06:08→18:24)
[2023-11-12] MEDS: HEPARIN SOD (PORCINE) 5000UNITS/ML 1ML VIAL/SYRINGE SQ SCH ×3 (06:09→21:11)
[2023-11-12 07:34] VITALS: BP 160/77; TEMP 96.2; O2SAT 95
[2023-11-12] MEDS: PANTOPRAZOLE 40MG TAB (PROTONIX) PO SCH (07:52)
[2023-11-12] MEDS: FLUoxetine 20MG CAP PO SCH ×2 (07:52→21:11)
[2023-11-12 16:00] VITALS: BP 162/82; TEMP 96.7; O2SAT 96
[2023-11-12 21:04] VITALS: BP 180/90; TEMP 97.4; O2SAT 96
[2023-11-12] MEDS ORDERED: ACETAMINOPHEN TAB 650MG DOSE (2X325MG) PO ONE (22:00)
[2023-11-12 23:41] VITALS: BP 172/96
[2023-11-13] MEDS: PIPERACILLIN/TAZOBACTAM SOD 3.375 GM in D5W MINI-BAG PLUS 50 ML IV SCH ×2 (00:13→06:48)
[2023-11-13] MEDS ORDERED: **hydrALAZINE HCL** 25 MG TAB PO ONE ×2 (01:00→02:00)
[2023-11-13 01:40] VITALS: BP 162/80
[2023-11-13 02:22] VITALS: BP 162/80
[2023-11-13 04:14] VITALS: BP 144/68; TEMP 96.7; O2SAT 95
[2023-11-13 06:16] LABS: BASO % 0.3 % (0.0-1.0); EOS # 0.4 10^3/uL (0.0-0.5); EOS % 5.1 % (0.0-3.0); HEMATOCRIT 36.2 % (36.0-47.0); HEMOGLOBIN 12.3 g/dl (12.0-15.5); MEAN CORPUSCULAR HEMOGLOBIN 31.1 pg (27.0-33.0); MEAN CORPUSCULAR VOLUME 91.4 fl (80.0-96.0); MONO # 0.6 10^3/uL (0.0-0.8); MONO % 8.1 % (2.0-8.0); NEUTROPHILS # 4.6 10^3/uL (1.5-8.5); NEUTROPHILS % 60.2 % (36.0-66.0); PLATELET COUNT, AUTOMATED 307 10^3/uL (150-450); RED BLOOD COUNT 3.96 10^6/uL (4.00-5.40); WHITE BLOOD COUNT 7.7 10^3/uL (4.0-10.0)
[2023-11-13] MEDS: HEPARIN SOD (PORCINE) 5000UNITS/ML 1ML VIAL/SYRINGE SQ SCH (06:49)
[2023-11-13 06:52] LABS: BLOOD UREA NITROGEN 7 MG/DL (9-23); CALCIUM LEVEL 9.4 MG/DL (8.3-10.6); CARBON DIOXIDE LEVEL 30 MMOL/L (20-31); CHLORIDE LEVEL 101 MMOL/L (98-107); CREATININE FOR GFR 0.74 MG/DL (0.55-1.30); GLOMERULAR FILTRATION RATE > 60.0 (>45); GLUCOSE, FASTING 92 MG/DL (74-106); POTASSIUM SERUM 3.6 MMOL/L (3.5-5.1); SODIUM LEVEL 137 MMOL/L (136-145)
[2023-11-13 08:22] VITALS: BP 148/77; TEMP 97; O2SAT 95
[2023-11-13] MEDS: PANTOPRAZOLE 40MG TAB (PROTONIX) PO SCH (08:36)
[2023-11-13] MEDS: FLUoxetine 20MG CAP PO SCH (08:36)
== END 2023-11-13 09:43 | disposition home or self-care (01) | DRG 247 ==
LOC: M ED 02:16 → M ED INP 07:49 → ENRESERV 12:19 → M PCU 13:56
PROVIDERS: ADMIT Internal Medicine; ATTEND Family Medicine
DX: K56.50 Intestinal adhesions [bands], unspecified as to partial versus complete obstruction (principal); E87.20 Acidosis, unspecified; I10 Essential (primary) hypertension; K56.7 Ileus, unspecified; K21.9 Gastro-esophageal reflux disease without esophagitis; F32.A Depression, unspecified; R55 Syncope and collapse; E78.5 Hyperlipidemia, unspecified; K52.9 Noninfective gastroenteritis and colitis, unspecified; R74.01 Elevation of levels of liver transaminase levels; Z79.899 Other long term (current) drug therapy; Z88.5 Allergy status to narcotic agent; Z90.49 Acquired absence of other specified parts of digestive tract; Z90.710 Acquired absence of both cervix and uterus

== ENCOUNTER → 2024-04-02 | Outpatient (CLI) | payer BC ==
[~2024-04-02] MED LIST changes: +ESTR3TA PO; +HYDR-3490 PO; +LISI40TA4 PO
[2024-04-02 12:49] LABS: TOTAL 25(OH) VITAMIN D 33.7 NG/ML (20.0-100.0)
== END ==
LOC: M WUC 08:29
PROVIDERS: ATTEND Physician Assistant
DX: K56.50 Intestinal adhesions [bands], unspecified as to partial versus complete obstruction (principal); K21.9 Gastro-esophageal reflux disease without esophagitis; Z86.010 Personal history of colon polyps

== ENCOUNTER → 2024-05-27 | Outpatient (REF) | payer BC ==
[2024-05-27 16:27] LABS: CK-MB VALUE MASS < 1.0 NG/ML (<3.6)
[2024-05-27 16:30] LABS: CPK CREATINE PHOSPHOKINASE 39 U/L (34-145); MB/CK RELATIVE INDEX 2.56 (< OR =4)
== END ==
LOC: M LAB REF 16:06
PROVIDERS: ATTEND Physician Assistant Medical
DX: R07.89 Other chest pain (principal)

== ENCOUNTER → 2024-09-29 | Outpatient (CLI) | payer BC | LOC: M RAD 14:09 | PROVIDERS: ATTEND Physician Assistant | DX: R05.9 Cough, unspecified (principal) ==

== ENCOUNTER → 2024-12-11 | Outpatient (CLI) | payer BC | LOC: M WUC 08:13 | PROVIDERS: ATTEND Nurse Practitioner Family | DX: J20.9 Acute bronchitis, unspecified (principal) ==

== ENCOUNTER → 2024-12-15 | Outpatient (CLI) | payer BC ==
[2024-12-15 11:11] LABS: BASO % 0.3 % (0.0-1.0); EOS % 0.1 % (0.0-3.0); HEMATOCRIT 38.1 % (36.0-47.0); HEMOGLOBIN 12.9 g/dl (12.0-15.5); LYMPH # 2.4 10^3/uL (1.5-5.0); LYMPH % 25.3 % (24.0-44.0); MEAN CORPUSCULAR HEMOGLOBIN 30.4 pg (27.0-33.0); MEAN CORPUSCULAR HGB CONC 33.9 g/dl (32.0-36.5); MEAN CORPUSCULAR VOLUME 89.9 fl (80.0-96.0); MONO # 0.8 10^3/uL (0.0-0.8); MONO % 8.6 % (2.0-8.0); NEUTROPHILS # 6.1 10^3/uL (1.5-8.5); PLATELET COUNT, AUTOMATED 394 10^3/uL (150-450); RED BLOOD COUNT 4.24 10^6/uL (4.00-5.40); WHITE BLOOD COUNT 9.6 10^3/uL (4.0-10.0)
[2024-12-15 11:50] LABS: ALBUMIN 3.7 G/DL (3.2-5.2); ALKALINE PHOSPHATASE 95 U/L (35-104); ALT/SGPT 42 U/L (7.0-40); AST/SGOT 25 U/L (<34); BILIRUBIN,TOTAL 0.3 MG/DL (0.3-1.2); BLOOD UREA NITROGEN 19 MG/DL (9-23); CALCIUM LEVEL 10.1 MG/DL (8.3-10.6); CARBON DIOXIDE LEVEL 29 MMOL/L (20-31); CHLORIDE LEVEL 96 MMOL/L (98-107); GLOMERULAR FILTRATION RATE > 60.0 (>45); GLUCOSE, FASTING 60 MG/DL (74-106); POTASSIUM SERUM 4.5 MMOL/L (3.5-5.1); SODIUM LEVEL 136 MMOL/L (136-145); TOTAL PROTEIN 7.6 G/DL (5.7-8.2)
== END ==
LOC: M WUC 08:48
PROVIDERS: ATTEND Nurse Practitioner Family
DX: J20.9 Acute bronchitis, unspecified (principal); R05.9 Cough, unspecified

== ENCOUNTER → 2025-03-18 | Outpatient (CLI) | payer BC ==
[~2025-03-18] MED LIST changes: +E-Z-GAS II EFFERVESCENT PACKET (SODIUM BICARB./CITRIC ACID/SIMETHICONE) As Ordered ONE; +E-Z-HD 98% w/w 340GM SUSP BTL As Ordered ONE; +E-Z-PAQUE 96% w/w SUSP 176GM BTL As Ordered ONE
== END ==
LOC: M RAD 08:37
PROVIDERS: ATTEND Nurse Practitioner Family
DX: K44.9 Diaphragmatic hernia without obstruction or gangrene (principal); K56.50 Intestinal adhesions [bands], unspecified as to partial versus complete obstruction; Z86.0101 Personal history of adenomatous and serrated colon polyps; K21.9 Gastro-esophageal reflux disease without esophagitis; K59.00 Constipation, unspecified

== ENCOUNTER → 2025-03-31 | Outpatient (CLI) | payer BC ==
[~2025-03-31] MED LIST changes: -E-Z-GAS II EFFERVESCENT PACKET (SODIUM BICARB./CITRIC ACID/SIMETHICONE) As Ordered ONE; -E-Z-HD 98% w/w 340GM SUSP BTL As Ordered ONE; -E-Z-PAQUE 96% w/w SUSP 176GM BTL As Ordered ONE
== END ==
LOC: M WUC 08:58
PROVIDERS: ATTEND Physician Assistant Medical
DX: R06.2 Wheezing (principal)

== ENCOUNTER → 2025-11-11 | Outpatient (CLI) | payer BC ==
[~2025-11-11] MED LIST changes: +LISI40TA10 PO; -LISI40TA4 PO
== END ==
LOC: M PLAIMG 09:40
PROVIDERS: ATTEND Physician Assistant
DX: R91.8 Other nonspecific abnormal finding of lung field (principal)